=== PATIENT | male | born 1965 | race Two or more races ===

== ENCOUNTER → 2017-12-02 | Outpatient (CLI) | payer OTHER ==
[~2017-12-02] MED LIST: IOHEXOL 300 MG/ML 100ML BOTTLE IJ ONE
[2017-12-02 13:47] LABS: BUN/Creatinine Ratio 16.3; Calcium 8.7 mg/dL (8.5-10.1); Potassium 4.1 mmol/L (3.5-5.1)
== END | disposition home or self-care (01) ==
LOC: CT 13:03
DX: R91.8 Other nonspecific abnormal finding of lung field (principal)
CPT/HCPCS: 36415; 71260; 80048; Q9967

== ENCOUNTER → 2017-12-21 | Outpatient (CLI) | payer OTHER ==
[~2017-12-21] MED LIST changes: +GASTROGRAFIN 30 ML SOL ONE
== END | disposition home or self-care (01) ==
LOC: CT 09:15
DX: B18.1 Chronic viral hepatitis B without delta-agent (principal); B18.2 Chronic viral hepatitis C; I70.0 Atherosclerosis of aorta; R91.8 Other nonspecific abnormal finding of lung field; K92.1 Melena
CPT/HCPCS: 74177; Q9963; Q9967